=== PATIENT | male | born 1935 | race Two or more races ===

== ENCOUNTER → 2018-02-07 14:31 | Outpatient (CLI) | payer OTHER | END | disposition home or self-care (01) | LOC: RAD 14:31 → LAB 14:31 | DX: R31.0 Gross hematuria (principal); C61 Malignant neoplasm of prostate ==

== ENCOUNTER 2018-04-07 08:14 | Inpatient (IN) | payer OTHER ==
[~2018-04-07] VITALS: Ht 190.5 cm; Wt 71.2 kg
[2018-04-07] MEDS ORDERED: TIROSINT112 MCG PO (08:40)
[2018-04-07] MEDS ORDERED: ENALAPRIL MALEA10 MG PO (08:40)
[2018-04-07] MEDS ORDERED: ZOCOR5 MG PO (08:41)
[2018-04-07] MEDS ORDERED: VERAPAMIL ER120 MG PO (08:41)
== END 2018-04-13 13:24 | disposition home or self-care (01) | DRG 658 ==
LOC: EDSTATUS 09:45 → ADM 09:45 → O/R 04-11 05:55 → SURG 04-11 05:55 → SURH 04-11 07:00 → SURG 04-11 15:20
PROVIDERS: ADMIT Urology
PROC: 0TT74ZZ Resection of Left Ureter, Percutaneous Endoscopic Approach (ICD-10-PCS; 2018-04-11)
PROC: 0TJB8ZZ Inspection of Bladder, Via Natural or Artificial Opening Endoscopic (ICD-10-PCS; 2018-04-11)
PROC: 0TT14ZZ Resection of Left Kidney, Percutaneous Endoscopic Approach (ICD-10-PCS; principal; 2018-04-11 07:00)
DX: C65.2 Malignant neoplasm of left renal pelvis (principal); I12.9 Hypertensive chronic kidney disease with stage 1 through stage 4 chronic kidney disease, or unspecified chronic kidney disease; N18.3 Chronic kidney disease, stage 3 (moderate)

== ENCOUNTER 2018-09-12 16:51 | Outpatient (CLI) | payer OTHER ==
[~2018-09-12 16:51] MED LIST: ENALAPRIL MALEA10 MG PO; TIROSINT112 MCG PO; VERAPAMIL ER120 MG PO; ZOCOR5 MG PO
== END 2018-09-12 17:24 | disposition home or self-care (01) ==
LOC: LAB 16:51
DX: N18.9 Chronic kidney disease, unspecified (principal); R31.0 Gross hematuria

== ENCOUNTER 2018-09-16 08:36 | Outpatient (CLI) | payer OTHER | END 2018-09-16 08:51 | disposition home or self-care (01) | LOC: TOM 08:36 | DX: R31.0 Gross hematuria (principal); C65.2 Malignant neoplasm of left renal pelvis ==

== ENCOUNTER 2018-09-28 09:35 | Day surgery (SDC) | payer OTHER | END 2018-09-28 17:00 | disposition home or self-care (01) | LOC: CIR.AMB 09:35 | DX: C67.1 Malignant neoplasm of dome of bladder (principal); C67.3 Malignant neoplasm of anterior wall of bladder ==

== ENCOUNTER 2019-02-23 10:06 | Outpatient (CLI) | payer OTHER | END 2019-02-23 17:13 | disposition home or self-care (01) | LOC: TOM 10:06 | DX: R31.0 Gross hematuria (principal); C67.8 Malignant neoplasm of overlapping sites of bladder ==

== ENCOUNTER 2019-04-19 05:55 | Day surgery (SDC) | payer OTHER ==
[~2019-04-19 05:55] MED LIST changes: +ARICEPT5 MG PO
== END 2019-04-19 13:35 | disposition home or self-care (01) ==
LOC: CIR.AMB 05:55
DX: C67.0 Malignant neoplasm of trigone of bladder (principal); C67.2 Malignant neoplasm of lateral wall of bladder; C67.3 Malignant neoplasm of anterior wall of bladder; C67.6 Malignant neoplasm of ureteric orifice

== ENCOUNTER → 2019-05-12 | Outpatient (CLI) | payer OTHER | END | disposition home or self-care (01) | LOC: NUCLEAR 09:01 | DX: C68.8 Malignant neoplasm of overlapping sites of urinary organs (principal) | CPT/HCPCS: 78816; A9552 ==